=== PATIENT | male | born 1995 | race Caucasian/White ===

== ENCOUNTER → 2018-02-27 | Outpatient (CLI) | payer OTHER ==
--- NOTE | 2018-02-27 12:06 | RADIOLOGY IMAGING REPORT ---
FACILITY: [facility] - [place] PATIENT NAME: Chris Yee : 1995 MR: [id number] V: [id number] EXAM DATE: ORDERING PHYSICIAN: VERONICA WHITTAKER TECHNOLOGIST: Location: [facility] - [place] Patient: Chris Yee : 1995 Visit/Account:[id number] Date of Sevice: 02/27/2018 EXAMINATION: Lumbar spine series, 3 views 02/27/2018 11:15 AM HISTORY: Low back pain. Left leg numbness/tingling COMPARISON: none FINDINGS: Five nonrib-bearing lumbar vertebral levels. Vertebral body and disc space heights are we ll-preserved. No significant spurring. Pedicles and posterior elements are intact. Normal alignmen t. Paraspinous soft tissue contours are unremarkable. IMPRESSION: Unremarkable lumbar spine. Report Dictated By: Demetri Rosenthal MD at 02/27/2018 12:00 PM Report E-Signed By: Demetri Rosenthal MD at 02/27/2018 12:01 PM WSN:[id number]
== END ==
LOC: RAD 11:07
PROVIDERS: ATTEND Family Medicine
DX: M54.5 Low back pain (principal)
CPT/HCPCS: 72100

== ENCOUNTER → 2018-03-25 | Outpatient (CLI) | payer OTHER ==
--- NOTE | 2018-03-25 17:59 | RADIOLOGY IMAGING REPORT ---
FACILITY: [facility] PATIENT NAME: Chris Yee : 1995 MR: [id number] V: [id number] EXAM DATE: ORDERING PHYSICIAN: VERONICA WHITTAKER TECHNOLOGIST: [place] [facility] [place]: Chris Yee : 1995 Visit/Account:[id number] Date of Sevice: 03/25/2018 Exam type: HIP History: Right hip pain Comparison: None. Findings: Two views of the right hip demonstrate no evidence of acute fracture or dislocation or significant ar thritic change. No lytic or blastic bone lesions are seen. IMPRESSION: 1. No acute osteoarticular abnormality the right hip is seen Report Dictated By: Keena Jimenez MD at 03/25/2018 5:55 PM Report E-Signed By: Keena Jimenez MD at 03/25/2018 5:56 PM WSN:[email or web address]
== END ==
LOC: RAD 17:00
PROVIDERS: ATTEND Family Medicine
DX: M25.551 Pain in right hip (principal); M25.552 Pain in left hip

== ENCOUNTER → 2018-04-22 | Outpatient (CLI) | payer OTHER ==
--- NOTE | 2018-04-22 09:17 | RADIOLOGY IMAGING REPORT ---
FACILITY: [facility] - [place], [place] PATIENT NAME: Chris Yee : 1995 MR: [id number] V: [id number] EXAM DATE: ORDERING PHYSICIAN: VERONICA WHITTAKER TECHNOLOGIST: Location: [facility] Patient: Chris Yee : 1995 Visit/Account:[id number] Date of Sevice: 04/22/2018 Exam type: ORBITS FOREIGN BODY 1 VIEW History: Pre-MRI screening Comparison: None. Findings: No radiopaque metallic foreign bodies project over the orbits IMPRESSION: 1. No radiopaque metallic foreign bodies project over the orbits Report Dictated By: Keena Jimenez MD at 04/22/2018 9:11 AM Report E-Signed By: Keena Jimenez MD at 04/22/2018 9:13 AM WSN:[email or web address]
--- NOTE | 2018-04-22 11:30 | RADIOLOGY IMAGING REPORT ---
[place] [facility] [place] Yee : 1995 MR: [id number] V: [id number] EXAM DATE: ORDERING PHYSICIAN: VERONICA WHITTAKER TECHNOLOGIST: Location: [facility] - [place] Patient: Chris Yee : 1995 Visit/Account:[id number] Date of Sevice: 04/22/2018 EXAMINATION: L SPINE W/O CONTRAST INDICATION: Low back pain COMPARISON: Radiographs February 27, 2018 TECHNIQUE: Multiplane MR imaging was performed through the lumbar spine without contrast. FINDINGS: Vertebral bodies: Normal Conus position/signal: Normal Marrow signal: Normal Extraspinal structures including psoas muscles/paraspinal soft tissues: Normal L1-2: Normal L2-3: Minimal right foraminal narrowing, otherwise normal. L3-4: Minimal bilateral foraminal narrowing, otherwise normal. L4-5: Normal L5-S1: Slight retrolisthesis of L5 on S1, small right posterior disc protrusion results in mild right lateral recess narrowing and contacts the right S1 nerve in the lateral recess. Minimal left forami nal narrowing. IMPRESSION: 1. Small right posterior L5-S1 disc protrusion results in mild right lateral recess narrowing and co ntacts the right S1 nerve. 2. Minimal multilevel foraminal narrowing, see level by level comments above. 3. Slight retrolisthesis of L5 on S1. 4. Otherwise unremarkable lumbar spine MRI. Report Dictated By: Gregorio Brewer MD at 04/22/2018 11:22 AM Report E-Signed By: Gregorio Brewer MD at 04/22/2018 11:27 AM WSN:[id number]
== END ==
LOC: MRI 01:22
PROVIDERS: ATTEND Family Medicine
DX: M48.07 Spinal stenosis, lumbosacral region (principal)
CPT/HCPCS: 70030; 72148